=== PATIENT | female | born 1995 | race African-American/Black ===

== ENCOUNTER 2018-11-09 17:55 | Emergency (ER) | payer OTHER ==
[~2018-11-09] VITALS: Ht 162.6 cm; Wt 55.8 kg
[2018-11-09 18:02] VITALS: Ht 162.6 cm; Wt 55.8 kg
[2018-11-09 18:49] LABS: microscopic required? NO
[2018-11-09 18:53] LABS: UA SPECIFIC GRAVITY >=1.030 (1.005-1.035); urine erythrocyte NEGATIVE (NEGATIVE)
[2018-11-09 21:01] VITALS: BP 120/70
== END 2018-11-09 21:01 | disposition home or self-care (01) ==
LOC: ED 17:55
PROVIDERS: Emergency Medicine
DX: R30.0 Dysuria (principal)
CPT/HCPCS: 87491; 87591